=== PATIENT | male | born 1995 | race Caucasian/White ===

== ENCOUNTER 2017-10-04 09:10 | Emergency (ER) | payer BC ==
[~2017-10-04] VITALS: Ht 172.7 cm; Wt 122.0 kg
[2017-10-04 09:30] VITALS: BP 160/79
[2017-10-04] MEDS ORDERED: METH4TAB3 PO (09:57)
[2017-10-04] MEDS ORDERED: AMOX-419 PO (09:57)
== END 2017-10-04 10:17 | disposition home or self-care (01) ==
LOC: ER 09:10
DX: H72.91 Unspecified perforation of tympanic membrane, right ear (principal); Z79.899 Other long term (current) drug therapy
CPT/HCPCS: 99283